=== PATIENT | female | born 1975 | race Caucasian/White ===

== ENCOUNTER 2016-11-17 09:17 | Emergency (ER) | payer MEDICAID ==
--- NOTE | 2016-12-02 08:09 | ER ---
ADMIT: 11/17/2016 RM/LOC: ER [facility] MR#: [id number] [id number] RICHARD HINTON [address] [place] [address] Emergency Room Report SEX: F AGE: 41 : 1975 DATE: 11/17/2016 ADDENDUM: This patient comes to the ER because she has had a sore throat for the last 3 days and pain in her ears. She is concerned she has strep throat. On physical exam, she has cobblestone appearance in the posterior pharynx. Tonsils do not appear to be swollen. No cervical lymphadenopathy. Strep screen was negative. DIAGNOSIS: Pharyngitis. We gave her ibuprofen 800 mg in the ER. We will have her push fluids and follow up with her primary as needed. Please see my T-sheet. ANNA Magallanes / Tulio Torres MD / chris JOB #: [id number] CC: Tulio Torres MD, Attending Physician Charla Velasquez MD, Family Physician
== END 2016-11-17 11:00 | disposition home or self-care (01) ==
LOC: ER 09:17
DX: J02.9 Acute pharyngitis, unspecified (principal)